=== PATIENT | male | born 1975 | race Caucasian/White ===

== ENCOUNTER 2022-12-08 10:49 | Outpatient (CLI) | payer SELFPAY | END 2022-12-08 10:50 | disposition home or self-care (01) | PROVIDERS: PCP Family Medicine; Referring Provider Family Medicine; Visit Provider Family Medicine | DX: Z00.00 Encounter for general adult medical examination without abnormal findings (principal); N40.0 Benign prostatic hyperplasia without lower urinary tract symptoms; Z12.5 Encounter for screening for malignant neoplasm of prostate; Z13.6 Encounter for screening for cardiovascular disorders | CPT/HCPCS: 80053; 80061; 84153 ==

== ENCOUNTER 2023-02-23 09:00 | Outpatient (RCR) | payer OTHER, SELFPAY | END 2023-03-04 16:41 | disposition home or self-care (01) | PROVIDERS: PCP Family Medicine; Visit Provider Family Medicine | DX: M25.511 Pain in right shoulder (principal); M99.07 Segmental and somatic dysfunction of upper extremity; Z51.89 Encounter for other specified aftercare | CPT/HCPCS: 97110; 97140; 97161 ==